=== PATIENT | female | born 1990 | race Caucasian/White ===

== ENCOUNTER 2016-07-23 11:14 | Emergency (ER) | payer SELFPAY ==
--- NOTE | 2016-07-23 13:29 | Emergency Department Report ---
ED Female HPI - General Chief complaint: Urogenital-Female Stated complaint: VAGINAL ITCHING/BURNING Time Seen by Provider: 07/23/16 12:22 Source: patient Mode of arrival: Ambulatory Limitations: No Limitations - History of Present Illness Initial comments: PT c/o vaginal itching x 3- 4 days. PT states she is unsure if her symptoms are related to change in soap. PT states she tried otc vagisil yesterday without relief. PT states her skin is red and when she wipes, she now sees blood. PT states she is on control implant and has not had vaginal bleeding. PT states she has had one sexual partner and is not concerned for std MD Complaint: other (vaginal irritation ) Onset/Timin -: Gradual, days(s) Severity scale (0 -10): 9 Quality: other (itchy/ irritated ) Improves with: none Worsens with: urination, other (wiping ) Are you Now?: No Associated Symptoms: denies: vaginal discharge, abdominal pain, nausea/vomiting - Related Data Sexually active: Yes : 1 Para: 1 Previous Rx's Medication Instructions Recorded Last Taken Type Blood-Glucose Meter [Blood Glucose 1 each MC QID #1 kit 07/23/16 Unknown Rx Monitor] Lancets [Blood Lancets] 1 each MC QID 30 Days 07/23/16 Unknown Rx Nystatin Cream [Mycostatin Cream] 1 applic TP BID PRN #1 tube 07/23/16 Unknown Rx metFORMIN [Glucophage] 500 mg PO BID #60 tablet 07/23/16 Unknown Rx metroNIDAZOLE [Flagyl] 500 mg PO Q12HR #14 tab 07/23/16 Unknown Rx Allergies Allergy/AdvReac Type Severity Reaction Status Date / Time No Known Allergies Allergy Unverified 07/23/16 11:58 ED Review of Systems ROS: Stated complaint: VAGINAL ITCHING/BURNING Other details as noted in HPI Comment: All other systems reviewed and negative Respiratory: denies: cough Cardiovascular: denies: chest pain Endocrine: increased thirst, increased urine Gastrointestinal: denies: abdominal pain, nausea, vomiting Genitourinary: dysuria (hurts to wipe ), abnormal menses (no cycle since having control implant ) Skin: rash (redness to groin ), change in color ED Past Medical Hx - Past Medical History Previous Medical History?: No Hx Diabetes: No - Surgical History Past Surgical History?: No - Family History Family history: other (denies family hx of dm ) - Social History Smoking Status: Never Smoker Substance Use Type: None - Medications Home Medications: Home Medications Medication Instructions Recorded Confirmed Last Taken Type Blood-Glucose Meter [Blood Glucose 1 each QID #1 kit 07/23/16 Unknown Rx Monitor] Lancets [Blood Lancets] 1 each QID 30 Days 07/23/16 Unknown Rx Nystatin Cream [Mycostatin Cream] 1 applic TP BID PRN #1 tube 07/23/16 Unknown Rx metFORMIN [Glucophage] 500 mg PO BID #60 tablet 07/23/16 Unknown Rx metroNIDAZOLE [Flagyl] 500 mg PO Q12HR #14 tab 07/23/16 Unknown Rx ED Physical Exam - General Limitations: No Limitations General appearance: alert, in no apparent distress - Head Head exam: Present: atraumatic, normocephalic, normal inspection - Eye Eye exam: Present: normal appearance, EOMI. Absent: conjunctival injection - ENT ENT exam: Present: normal exam, normal external ear exam - Neck Neck exam: Present: normal inspection, full ROM. Absent: tenderness - Respiratory Respiratory exam: Present: normal lung sounds bilaterally. Absent: respiratory distress, wheezes - Cardiovascular Cardiovascular Exam: Present: regular rate, normal rhythm, normal heart sounds - GI/Abdominal GI/Abdominal exam: Present: soft. 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 Absent: cervical discharge Bi-manual exam: Present: normal bi-manual exam. Absent: cervical motion tendernes, adnexal tenderness, adnexal mass, uterine enlargement, uterine tenderness - Extremities Exam Extremities exam: Present: normal inspection, full ROM - Back Exam Back exam: Present: normal inspection, full ROM. Absent: tenderness, CVA tenderness (R), CVA tenderness (L) - Neurological Exam Neurological exam: Present: alert, oriented X3, normal gait - Psychiatric Psychiatric exam: Present: normal affect, normal mood - Skin Skin exam: Present: warm, dry, intact ED Course Vital Signs 07/23/16 07/23/16 07/23/16 11:58 15:25 18:38 Temperature 98.4 F 97.8 F 98.4 F Pulse Rate 108 H 105 H 94 H Respiratory 18 16 18 Rate Blood Pressure 134/91 Blood Pressure 134/91 125/86 [Right] O2 Sat by Pulse 99 99 99 Oximetry - Reevaluation(s) Reevaluation #1: 07/23/16 13:10 PT aware of bg. PT states she has not eaten today. PT aware with fasting bg greater than 300, she likely has DM. PT aware she will need to follow up with PCP for DM work up. Reevaluation #2: 07/23/16 14:49 UA resulted, + ketones in urine, will give pt 1L ns and check bmp Pt aware of available lab results. Reevaluation #3: 07/23/16 18:20 PT received 1L ns while in ED, bg decreased. Dr fong aware of pt and agrees with plan of care. Pt given strict return precautions. PT given instructions on diet and lifestyle modifications. PT aware she must follow up with PCP. PT has no questions at this time. - Pulse Oximetry Interpretation Digit-Finger Initial Pulse Oximetry Readin Actions Taken: none ED Medical Decision Making - Lab Data Result diagrams: 07/23/16 14:59 - Differential Diagnosis vaginitis, std, uti, , dm Critical care attestation.: If time is entered above; I have spent that time in minutes in the direct care of this critically ill patient, excluding procedure time. ED Disposition Clinical Impression: Hyperglycemia, Bacterial vaginosis, Itching in the vaginal area Vaginitis Qualifiers: Chronicity: acute Qualified Code(s): N76.0 - Acute vaginitis Disposition: DISCHARGED TO HOME OR SELFCARE Is pt being admited?: No Does the pt Need Aspirin: No Condition: Stable Instructions: Metformin (By mouth), Bacterial Vaginosis (ED), Shopping for a Healthy Diet (ED), Diabetes Mellitus Type 2 in Adults (ED), Hyperglycemia, Non- Diabetic (ED) Additional Instructions: No ETOH with Flagyl Follow [employer] diet Prescriptions: Blood-Glucose Meter [Blood Glucose Monitor] 1 each MC QID #1 kit Lancets [Blood Lancets] 1 each MC QID 30 Days metFORMIN [Glucophage] 500 mg PO BID #60 tablet metroNIDAZOLE [Flagyl] 500 mg PO Q12HR #14 tab Nystatin Cream [Mycostatin Cream] 1 applic TP BID PRN #1 tube PRN Reason: Itching Referrals: PRIMARY CARE, [Primary Care Provider] - 3-5 Days JACKY ROBERTS MD, PHD [Staff Physician] - 3-5 Days [facility] [Outside] - 3-5 Days [facility] [Outside] - 3-5 Days Forms: STI Treatment and Prevention
[2016-07-23 14:45] LABS: Bacteria,Urine 1+ /HPF (Negative); Bilirubin,Urine NEG (Negative); Blood,Urine LG (Negative); Ketones,Urine 20 mg/dL (Negative); Leukocyte Esterase,Urine TR (Negative); Nitrite,Urine NEG (Negative); Urobilinogen,Urine < 2.0 mg/dL (<2.0)
[2016-07-23] MEDS ORDERED: NACL 0.9% 1000 ML 1,000 ML IV ONE (14:49)
[2016-07-23 15:31] LABS: Anion Gap 21 mmol/L; BUN/Creatinine Ratio 18.33; Blood Urea Nitrogen 11 mg/dL (7-17); Carbon Dioxide 23 mmol/L (22-30); Chloride 94.7 mmol/L (98-107); Glucose 318 mg/dL (65-100); Potassium 3.8 mmol/L (3.6-5.0); Sodium 135 mmol/L (137-145)
[2016-07-23] MEDS ORDERED: DIFLUCAN PO ONE (15:52)
[2016-07-23 18:40] VITALS: BP 125/86
== END 2016-07-23 18:44 | disposition home or self-care (01) ==
LOC: ED 11:14
DX: N76.0 Acute vaginitis (principal); R73.9 Hyperglycemia, unspecified
CPT/HCPCS: 36415; 80048; 81001; 81025; 82962; 87210; 87591; 96360; 99284; J7030

== ENCOUNTER 2016-10-09 17:59 | Emergency (ER) | payer SELFPAY ==
[2016-10-09 20:05] LABS: Basophils % (Auto) 0.6 % (0.0-1.8); Eosinophils % (Auto) 0.6 % (0.0-4.3); Hematocrit 42.7 % (30.3-42.9); Mean Corpuscular HGB Conc 33 % (30-34); Mean Corpuscular Hemoglobin 28 pg (28-32); Mean Corpuscular Volume 85 fl (79-97); Platelet Count 295 K/mm3 (140-440); Red Cell Distribution Width 13.7 % (13.2-15.2); White Blood Count 9.7 K/mm3 (4.5-11.0)
[2016-10-09 20:24] LABS: Anion Gap 18 mmol/L; Blood Urea Nitrogen 10 mg/dL (7-17); Calcium 9.5 mg/dL (8.4-10.2); Carbon Dioxide 25 mmol/L (22-30); Chloride 100.2 mmol/L (98-107); Glucose 132 mg/dL (65-100); Potassium 4.4 mmol/L (3.6-5.0); Sodium 139 mmol/L (137-145)
--- NOTE | 2016-10-09 21:53 | Emergency Department Report ---
ED Chest Pain HPI - General Chief Complaint: Chest Pain Stated Complaint: CHEST PAIN Time Seen by Provider: 10/09/16 21:27 Source: patient, family Mode of arrival: Ambulatory Limitations: No Limitations - History of Present Illness Initial Comments: Patient here reports right chest pain does been ongoing since yesterday and it' s been off and on. Denies any nausea or vomiting. Denies any radiation of pain. Denies any shortness of breath. Denies any trauma to chest. Denies any fever or chills. Denies any history of heart disease or lung disease. Denies any personal history of blood clots or family history of blood clots. Denies any recent travel long distance by airplane or car. Denies taking control. Patient does have a history of diabetes she takes metformin. Last menstrual period. Denies any recent injury or recent immobilization. Denies any recent surgery. Denies any swelling of a limp. She is currently not having any chest pain but she said she is just worried because it started. She says she thinks it's from [place] and the people that she is pushing are very heavy. Pain is worse with touch. MD Complaint: chest pain Onset/Timin -: days(s) Onset: during rest, during exertion Pain Location: right chest Pain Radiation: none Severity scale (0 -10): 0 Quality: aching Consistency: intermittent Improves With: nothing Worsens With: movement Context: other (she associated chest pain but pushing a wheelchair around airport) re: denies: nausea, vomting, diaphoresis, dyspnea, sense of impending doom Other Symptoms: denies: cough, fever, syncope, rash, acid taste in mouth, leg swelling, palpitations, burping Treatments Prior to Arrival: none Aspirin use within the Past 7 Days: (0) No - Related Data On Oral Contraceptives: No Previous Rx's Medication Instructions Recorded Last Taken Type Blood-Glucose Meter [Blood Glucose 1 each QID #1 kit 07/23/16 Unknown Rx Monitor] Lancets [Blood Lancets] 1 each QID 30 Days 07/23/16 Unknown Rx Nystatin Cream [Mycostatin Cream] 1 applic TP BID PRN #1 tube 07/23/16 Unknown Rx metFORMIN [Glucophage] 500 mg PO BID #60 tablet 07/23/16 Unknown Rx metroNIDAZOLE [Flagyl] 500 mg PO Q12HR #14 tab 07/23/16 Unknown Rx Allergies Allergy/AdvReac Type Severity Reaction Status Date / Time No Known Allergies Allergy Verified 10/09/16 18:39 Heart Score - HEART Score History: Slightly suspicious EKG: Non-specific Age: < 45 Risk factors: 1-2 risk factors Troponin: < normal limit HEART Score: 2 - Critical Actions Critical Actions: 0-3 pts:0.9-1.7%risk of adverse cardiac event.Candidate for discharge ED Review of Systems ROS: Stated complaint: CHEST PAIN Other details as noted in HPI Comment: All other systems reviewed and negative Constitutional: denies: chills, fever Eyes: denies: eye pain, vision change ENT: denies: ear pain, throat pain, dental pain, congestion Respiratory: no symptoms reported Cardiovascular: chest pain. denies: palpitations, edema, syncope Gastrointestinal: denies: abdominal pain, nausea, vomiting, diarrhea, constipation, hematemesis, melena, hematochezia Genitourinary: denies: urgency, dysuria, frequency, hematuria, discharge, abnormal menses, other Musculoskeletal: denies: back pain, joint swelling, arthralgia Skin: denies: rash Neurological: denies: headache, numbness, paresthesias, confusion, abnormal gait , vertigo Psychiatric: denies: anxiety ED Past Medical Hx - Past Medical History Previous Medical History?: Yes Hx Diabetes: Yes - Surgical History Past Surgical History?: No - Family History Family history: diabetes, hypertension - Social History Smoking Status: Never Smoker Substance Use Type: None - Medications Home Medications: Home Medications Medication Instructions Recorded Confirmed Last Taken Type Blood-Glucose Meter [Blood Glucose 1 each QID #1 kit 07/23/16 Unknown Rx Monitor] Lancets [Blood Lancets] 1 each QID 30 Days 07/23/16 Unknown Rx Nystatin Cream [Mycostatin Cream] 1 applic TP BID PRN #1 tube 07/23/16 Unknown Rx metFORMIN [Glucophage] 500 mg PO BID #60 tablet 07/23/16 Unknown Rx metroNIDAZOLE [Flagyl] 500 mg PO Q12HR #14 tab 07/23/16 Unknown Rx ED Physical Exam - General Limitations: No Limitations General appearance: alert, in no apparent distress - Head Head exam: Present: atraumatic, normocephalic, normal inspection - Eye Eye exam: Present: normal appearance, PERRL, EOMI. Absent: conjunctival injection, periorbital swelling, periorbital tenderness Pupils: Present: normal accommodation - ENT ENT exam: Present: normal exam, normal orophraynx, mucous membranes moist - Neck Neck exam: Present: normal inspection, full ROM. Absent: tenderness, meningismus, lymphadenopathy - Respiratory Respiratory exam: Present: normal lung sounds bilaterally, chest wall tenderness (positive right chest wall tenderness). Absent: respiratory distress , accessory muscle use, decreased breath sounds, prolonged expiratory - Cardiovascular Cardiovascular Exam: Present: regular rate, normal rhythm, normal heart sounds - Expanded Cardiovascular Exam Expanded Peripheral pulses: 2+: Carotid (R), Carotid (L), Radial (R), Radial (L), Posterior Tibialis (R), Posterior Tibialis (L), Dorsalis Pedis (R) - GI/Abdominal GI/Abdominal exam: Present: soft, normal bowel sounds. Absent: distended, tenderness, guarding, rebound, rigid - Extremities Exam Extremities exam: Present: normal inspection, full ROM, normal capillary refill , other (no clubbing, cyanosis or edema. 2+ pulses all extremities. No neurovascular compromise. No varicose vein noted.). Absent: tenderness, pedal edema, joint swelling, calf tenderness - Back Exam Back exam: Present: normal inspection, full ROM. Absent: tenderness, CVA tenderness (R), CVA tenderness (L), muscle spasm, paraspinal tenderness, vertebral tenderness, rash noted - Neurological Exam Neurological exam: Present: alert, oriented X3, normal gait, reflexes normal. Absent: motor sensory deficit - Psychiatric Psychiatric exam: Present: normal affect, normal mood - Skin Skin exam: Present: warm, dry, intact, normal color. Absent: rash ED Course Vital Signs 10/09/16 18:33 Temperature 99.7 F H Pulse Rate 92 H Respiratory 17 Rate Blood Pressure 130/88 O2 Sat by Pulse 99 Oximetry - Reevaluation(s) Reevaluation #1: 10/09/16 22:23 Patient had uneventful ED stay NITIN score - Nitin Score Age > 65: (0) No Aspirin use within the Past 7 Days: (0) No 3 or more CAD Risk Factors: (0) No 2 or more Angina events in past 24 hrs: (0) No Known CAD with more than 50% Stenosis: (0) No Elevated Cardiac Markers: (0) No ST Deviation Greater than 0.5mm: (0) No NITIN Score: 0 ED Medical Decision Making - Lab Data Result diagrams: 10/09/16 19:50 10/09/16 19:50 Lab Results 10/09/16 10/09/16 10/09/16 Range/Units 19:50 19:50 19:50 WBC 9.7 (4.5-11.0) K/mm3 RBC 5.00 (3.65-5.03) M/mm3 Hgb 14.0 (10.1-14.3) gm/dl Hct 42.7 (30.3-42.9) % MCV 85 (79-97) fl MCH 28 (28-32) pg MCHC 33 (30-34) % RDW 13.7 (13.2-15.2) % Plt Count 295 (140-440) K/mm3 Lymph % (Auto) 37.5 H (13.4-35.0) % Wirt % (Auto) 5.8 (0.0-7.3) % Eos % (Auto) 0.6 (0.0-4.3) % Baso % (Auto) 0.6 (0.0-1.8) % Lymph # 3.6 (1.2-5.4) K/mm3 Wirt # 0.6 (0.0-0.8) K/mm3 Eos # 0.1 (0.0-0.4) K/mm3 Baso # 0.1 (0.0-0.1) K/mm3 Seg Neutrophils % 55.5 (40.0-70.0) % Seg Neutrophils # 5.4 (1.8-7.7) K/mm3 Sodium 139 (137-145) mmol/L Potassium 4.4 (3.6-5.0) mmol/L Chloride 100.2 (98-107) mmol/L Carbon Dioxide 25 (22-30) mmol/L Anion Gap 18 mmol/L BUN 10 (7-17) mg/dL Creatinine 0.5 L (0.7-1.2) mg/dL Estimated GFR > 60 ml/min BUN/Creatinine Ratio 20.00 % Glucose 132 H (65-100) mg/dL Calcium 9.5 (8.4-10.2) mg/dL Troponin T < 0.010 (0.00-0.029) ng/mL HCG, Qual Negative (Negative) - EKG Data -: EKG Interpreted by Me EKG shows normal: sinus rhythm (79 beats per minutes) - EKG Data Interpretation: nonspecific ST-T wave isaac - Radiology Data Radiology results: report reviewed Chest x-ray revealed no acute cardiopulmonary findings - Medical Decision Making ED course: Patient here with atypical chest pain and EKG revealed no acute findings, chest x-ray reveals no acute findings. Lab work to include troponin stable. HCG is negative. His was explained to patient in detail and I discussed with her that she has chest wall pain which is musculoskeletal in nature and that became she has a history of diabetes she will need to follow-up with a residential collections for further testing. 0 criteria ,No need for further workup , <2% chance of PE based on PERC rule. She voices understanding of diagnosis and treatment plan and patient discharged home in stable condition. Critical care attestation.: If time is entered above; I have spent that time in minutes in the direct care of this critically ill patient, excluding procedure time. ED Disposition Clinical Impression: Atypical chest pain, Chest wall pain Disposition: DC-01 TO HOME OR SELFCARE Is pt being admited?: No Does the pt Need Aspirin: No Condition: Stable Instructions: Chest Pain (ED), Thoracic Pain (ED) Additional Instructions: Please follow up with radiologist regarding and chest pain. You have diabetes and will need further workup to include stress test. If you do not have a primary care physician he can follow-up at [facility]. Referrals: PRIMARY MD LEFTY [Primary Care Provider] - 10/10/16 FAUSTINO NARVAEZ MD [Staff Physician] - 10/13/16 Forms: Work/School Release Form(ED)
--- NOTE | 2016-10-09 21:57 | XRay Report ---
FINAL REPORT PROCEDURE: Chest. TECHNIQUE: PA and lateral views. HISTORY: Chest pain, shortness of breath. COMPARISON: No prior studies are available for comparison. FINDINGS: The heart and mediastinum appear normal. The lungs are clear and well expanded. There are no pleural effusions. The soft tissues are unremarkable. There is a mild thoracic scoliosis. IMPRESSION: No evidence of acute cardiopulmonary disease.
[2016-10-09 22:38] VITALS: BP 125/86
== END 2016-10-09 22:36 | disposition home or self-care (01) ==
LOC: ED 17:59
DX: R07.89 Other chest pain (principal); E11.9 Type 2 diabetes mellitus without complications
CPT/HCPCS: 36415; 71020; 80048; 84484; 84703; 85025; 93005; 93010